=== PATIENT | female | born 1955 | race African-American/Black ===

== ENCOUNTER → 2023-08-01 11:14 | Outpatient (REF) | payer OTHER, SELFPAY ==
[2023-08-01 12:33] LABS: % Basophils 0.4 % (0-2); % Eosinophils 1.6 % (0-6); % Immature Granulocytes 0.2 % (0-0.5); % Lymphocytes 39.6 % (20.5-51.1); % Monocytes 7.5 % (1.7-9.3); % Neutrophils 50.7 % (42.2-75.2); Absolute Eosinophils 0.1 10^3/uL (0-0.7); Absolute Lymphocytes 2.2 10^3/uL (1.2-3.4); Absolute Monocytes 0.4 10^3/uL (0.1-0.6); Absolute Neutrophils 2.9 10^3/uL (1.4-6.5); Hemoglobin 14.3 g/dL (12.0-16.0); Mean Corpuscular Hgb 29.5 pg (27.0-31.0); Mean Corpuscular Volume 86.8 fL (81.0-99.0); Mean Platelet Volume 9.3 fL (7.4-10.4); Nucleated Red Blood Cells % 0 %; Platelet Count 345 10^3/uL (130-400); Red Blood Cell Count 4.84 10^6/uL (4.20-5.40); Red Cell Dist. Width 13.7 % (11.5-14.5); White Blood Cell Count 5.6 10^3/uL (4.8-10.8)
[2023-08-01 12:58] LABS: ALT (SGPT) 32 U/L (0-35); AST (SGOT) 34 U/L (14-36); Albumin 4.9 g/dl (3.5-5.0); Alkaline Phosphatase 56 U/L (38-126); Blood Urea Nitrogen 13 mg/dl (7-17); Calcium 10.2 mg/dl (8.4-10.2); Carbon Dioxide 30 mmol/L (22-30); Chloride 101 mmol/L (98-107); Glucose 114 mg/dl (70-99); HDL Cholesterol 68 mg/dl; LDL Cholesterol, Calculated 158 mg/dl; Sodium 137 mmol/L (135-145); Total Bilirubin 0.7 mg/dl (0.2-1.3); Total Cholesterol 245 mg/dl (50-199); Total Protein 7.8 g/dl (6.3-8.2); Triglyceride 96 mg/dl (10-149); Very Low Density Lipoprotein 19 mg/dl (0-30); eGFR > 60.00
[2023-08-01 13:03] LABS: Potassium 4.8 mmol/L (3.5-5.1)
[2023-08-01 13:29] LABS: TSH Reflex To Free T4 1.83 uIU/ml (0.47-4.68)
== END ==
LOC: REG 11:14
PROVIDERS: ATTENDING PHYSICIAN Student in an Organized Health Care Education/Training Program
DX: Z00.00 Encounter for general adult medical examination without abnormal findings (principal); I10 Essential (primary) hypertension; E04.1 Nontoxic single thyroid nodule
CPT/HCPCS: 36415; 80053; 80061; 84443; 85025

== ENCOUNTER → 2023-08-15 07:46 | Outpatient (REF) | payer OTHER, SELFPAY | LOC: RAD 07:46 | PROVIDERS: ATTENDING PHYSICIAN Student in an Organized Health Care Education/Training Program | DX: Z00.00 Encounter for general adult medical examination without abnormal findings (principal); Z78.0 Asymptomatic menopausal state | CPT/HCPCS: 77080 ==

== ENCOUNTER → 2023-11-19 07:49 | Outpatient (REF) | payer OTHER, SELFPAY ==
[2023-11-19 11:17] LABS: Microalbumin, Random Urine 1.1 mg/dl (0.6-1.7); Microalbumin/creatinine Ratio 11.2 mg/g
[2023-11-19 11:44] LABS: ALT (SGPT) 50 U/L (0-35); AST (SGOT) 54 U/L (14-36); Albumin 5.2 g/dl (3.5-5.0); Alkaline Phosphatase 50 U/L (38-126); Blood Urea Nitrogen 16 mg/dl (7-17); Calcium 9.9 mg/dl (8.4-10.2); Carbon Dioxide 25 mmol/L (22-30); Chloride 103 mmol/L (98-107); Glucose 113 mg/dl (70-99); HDL Cholesterol 64 mg/dl; LDL Cholesterol, Calculated 71 mg/dl; Potassium 4.9 mmol/L (3.5-5.1); Sodium 139 mmol/L (135-145); Total Bilirubin 0.8 mg/dl (0.2-1.3); Total Cholesterol 145 mg/dl (50-199); Total Protein 7.8 g/dl (6.3-8.2); Triglyceride 52 mg/dl (10-149); Very Low Density Lipoprotein 10 mg/dl (0-30); eGFR > 60.00
[2023-11-19 12:38] LABS: Glycohemoglobin (HgbA1c) 6.6 % (4.0-5.6)
== END ==
LOC: REG 07:49
PROVIDERS: ATTENDING PHYSICIAN Student in an Organized Health Care Education/Training Program
DX: E11.9 Type 2 diabetes mellitus without complications (principal); E78.49 Other hyperlipidemia
CPT/HCPCS: 36415; 80053; 80061; 82043; 82570; 83036

== ENCOUNTER → 2024-01-02 07:53 | Outpatient (REF) | payer OTHER, SELFPAY ==
[2024-01-02 09:15] LABS: ALT (SGPT) 40 U/L (0-35); AST (SGOT) 45 U/L (14-36); Alkaline Phosphatase 52 U/L (38-126); Total Bilirubin 0.8 mg/dl (0.2-1.3)
== END ==
LOC: REG 07:53
PROVIDERS: ATTENDING PHYSICIAN Student in an Organized Health Care Education/Training Program
DX: R79.89 Other specified abnormal findings of blood chemistry (principal)
CPT/HCPCS: 36415; 82247; 84075; 84450; 84460

== ENCOUNTER → 2024-05-21 10:42 | Outpatient (REF) | payer OTHER, SELFPAY | LOC: WDC 10:42 | PROVIDERS: ATTENDING PHYSICIAN Student in an Organized Health Care Education/Training Program | DX: Z12.31 Encounter for screening mammogram for malignant neoplasm of breast (principal) | CPT/HCPCS: 77063; 77067 ==